=== PATIENT | male | born 1975 | race African-American/Black ===

== ENCOUNTER 2024-04-25 09:20 | Day surgery (SDC) | payer MEDICAID, SELFPAY ==
[2024-04-25] VITALS (12 sets, daily range): BP systolic 114–132; BP diastolic 54–95; PULSE 70–96; RESP 9–20; TEMP 36.3–36.4; O2SAT 95–100; BMI 22.8
[2024-04-25] MEDS: NA SU/NAHCO3/KC/PEG (Golytely) 4,000 ML BTL 4000 ML PO (10:00)
[2024-04-25] MEDS: bisacodyL 10 MG SUPP PR (10:30)
[2024-04-25] MEDS: SODIUM CHLORIDE 0.9% 500 ML 500 ML 20 ML IV (12:37)
[2024-04-25] MEDS: MIDAZOLAM INJ 1 MG/ML VIAL 2 ML (ASD USE ONLY) 2 MG IV (12:42)
[2024-04-25] MEDS: fentaNYL CIT INJ 50 mCg/ML AMP 2ML (ASD USE ONLY) IV (12:42)
--- NOTE | 2024-04-25 14:30 | SUR.PHASEII ---
1410 Pt more awake and alert. Denies pain or N/V. Abd remains soft. Mane PO fluids. 1422 Pt assessment unchanged. No complaints. Mother assisting pt with getting dressed. DC instructions given. Both state understanding. Pt meets dc criteria-to home.
== END 2024-04-25 14:20 | disposition home or self-care (01) ==
PROVIDERS: PCP Nurse Practitioner Family; Referring Provider Internal Medicine Gastroenterology; Visit Provider Internal Medicine Gastroenterology
PROC: 0DBE8ZX Excision of Large Intestine, Via Natural or Artificial Opening Endoscopic, Diagnostic (ICD-10-PCS; CPT 45380; principal; 2024-04-25 11:45)
DX: Z12.11 Encounter for screening for malignant neoplasm of colon (principal); K64.1 Second degree hemorrhoids
CPT/HCPCS: 45378; J2250; J3010; J7040; A9270

== ENCOUNTER → 2024-10-31 | Outpatient (CLI) | payer MEDICAID, SELFPAY ==
--- NOTE | 2024-10-31 12:37 | XR_ITS ---
Examination: Bilateral hips, AP pelvis, 5 views Technique: AP, lateral views both hips, AP pelvis, 5 views Exam date and time: October 31, 2024 1301 hours INDICATIONS: Bilateral hip pain several months. FINDINGS: Moderate narrowing hip joints bilaterally Sclerosis of the femoral heads bilaterally Bones of the pelvis intact No hip or pelvic fracture IMPRESSION: Moderate bilateral hip osteoarthritis Suspicious for bilateral femoral head avascular necrosis, consider MRI hips without contrast follow-up
== END | disposition home or self-care (01) ==
PROVIDERS: PCP Nurse Practitioner Family; Referring Provider Nurse Practitioner Family; Visit Provider Nurse Practitioner Family
DX: M16.0 Bilateral primary osteoarthritis of hip (principal); M89.8X8 Other specified disorders of bone, other site
CPT/HCPCS: 73523